=== PATIENT | female | born 1985 | race Caucasian/White ===

== ENCOUNTER 2022-02-13 09:17 | Observation (INO) ==
[2022-02-13] MEDS ORDERED: Iopamidol - 370 500 ML MLS IVP ONE (09:43)
[2022-02-13 10:20] LABS: Basophils % 0.4 %; Eosinophils # 0.2 K/mcL (0.0-0.6); Eosinophils % 3.9 %; Hematocrit 34.9 % (35.3-44.9); Hemoglobin 12.6 g/dL (11.5-15.4); Immature Granulocytes % 0.2 % (0-4); Lymphocytes # 2.5 K/mcL (0.6-4.6); Lymphocytes % 46.1 %; Mean Corpuscular HGB Conc 36.1 g/dL (31.6-35.5); Mean Corpuscular Hemoglobin 31.4 pg (28.0-33.3); Mean Platelet Volume 10.1 fL (9.4-12.4); Monocytes # 0.5 K/mcL (0.0-1.3); Monocytes % 8.6 %; Neutrophils # 2.2 K/mcL (1.6-8.9); Platelet Count 252 K/mcL (140-400); Red Blood Count 4.01 M/mcL (3.82-4.97); Red Cell Distribution Width 11.4 % (11.5-14.5); Segmented Neutrophils % 40.8 %; White Blood Count 5.4 K/mcL (4.3-11.1)
[2022-02-13 10:39] LABS: BUN/Creatinine Ratio 13 (6-26); Blood Urea Nitrogen 10 mg/dL (6-20); Calcium 9.4 mg/dL (8.6-10.3); Carbon Dioxide 29 mEq/L (23-29); Chloride 104 mEq/L (98-107); Glucose 82 mg/dL (70-105); Osmolality,Calculated 284 (280-300); Potassium 3.4 mEq/L (3.5-5.1); Sodium 138 mEq/L (136-145)
[2022-02-13] MEDS ORDERED: CefOXitin 1,000 MG VIAL ONE (12:57)
[2022-02-13] MEDS ORDERED: *HR* FentaNYL (PF) 100 MCG/2 ML VIAL ONE (13:00)
[2022-02-13] MEDS ORDERED: *HR* Midazolam HCl 2 MG/2 ML VIAL ONE (13:00)
[2022-02-13] MEDS ORDERED: *HR* Succinylcholine 200 MG/10 ML VIAL IVP ONE (13:05)
[2022-02-13] MEDS ORDERED: Lidocaine -MPF 2% 2 ML VIAL ONE (13:05)
[2022-02-13] MEDS ORDERED: Ibuprofen 600 MG TABLET PO PRN ×2 (14:41→15:44)
[2022-02-13] MEDS ORDERED: *HR* OxyCODONE/APAP 5/325 TABLET PO PRN ×2 (14:41→15:44)
[2022-02-13] MEDS ORDERED: *HR* Metoprolol 5 MG/5 ML VIAL IVP PRN ×2 (14:41→15:44)
[2022-02-13] MEDS ORDERED: 0.9 % Sodium Chloride 1,000 ML IVC SCH ×2 (14:45→15:44)
[2022-02-13] MEDS ORDERED: *HR* Buprenorphine HCl 2 MG SUBLINGUAL TABLET SL SCH (15:44)
[2022-02-13] MEDS ORDERED: methocarbamoL 500 MG TABLET PO PRN (15:44)
[2022-02-14 11:12] VITALS: BP 96/62; PULSE 62; TEMP 98.1; O2SAT 96
== END 2022-02-14 12:57 | disposition home or self-care (01) ==
LOC: EMEROOARM 09:17 → 3BNU 09:17
PROVIDERS: ADMIT Hospitalist; ATTEND Hospitalist